=== PATIENT | female | born 1995 | race Caucasian/White ===

== ENCOUNTER 2018-09-10 20:20 | Emergency (ER) | payer BC ==
--- NOTE | 2018-09-10 20:49 | RAD ---
EXAM: Chest 2 views: HISTORY: Cough and right chest pain COMPARISON: None. FINDINGS: There is a normal-sized cardiomediastinal silhouette. There is no evidence of consolidation, mass, or pleural effusion. The bones are unremarkable. IMPRESSION: No evidence of acute cardiopulmonary disease
[2018-09-10] MEDS ORDERED: HYDROcodone/Acetaminophen 5/325 mg Tablet ONE (21:06)
== END 2018-09-10 21:11 | disposition home or self-care (01) ==
LOC: ERS 20:20
DX: R07.81 Pleurodynia (principal)
CPT/HCPCS: 71046